=== PATIENT | female | born 1950 | race Caucasian/White ===

== ENCOUNTER 2016-05-07 15:03 | Emergency (ER) | payer MEDICAID ==
[~2016-05-07] VITALS: Ht 162.6 cm; Wt 68.5 kg
[2016-05-07 19:31] LABS: Urine Bilirubin Negative (Negative); Urine Blood Negative /uL (Negative); Urine Color Yellow (Yellow); Urine Glucose Normal (Normal); Urine Hyaline Cast FEW /lpf (0 - 2); Urine Ketone Negative (Negative); Urine Mucus FEW (None Seen); Urine Nitrite Negative (Negative); Urine RBC <1 /hpf (0 - 4); Urine Squamous Epithelial Cell FEW /hpf (<5); Urine Urobilinogen Normal (Negative); Urine pH 5.5 (5.0-8.0)
[2016-05-07 21:59] VITALS: BP 139/51
[2016-05-07] MEDS ORDERED: AZITHROMYCIN 250 MG TAB PO ONE (22:00)
[2016-05-07 22:17] LABS: BUN/Creatinine Ratio 20.3; Bilirubin, Total 0.2 mg/dL (0.2-1.0); Calcium 9.1 mg/dL (8.5-10.1); Potassium 4.4 mmol/L (3.5-5.1); Total Protein 8.2 g/dL (6.4-8.2)
[2016-05-07 22:24] LABS: Basophils # (auto) 0 uL; DEFINITIVE VIEW TRANSMISSION; Eosinophils # (auto) 0.1 uL; Eosinophils % (auto) 0.6 % (0.0-7.0); Hematocrit 23.2 % (36.0-46.0); Lymphocytes # (auto) 0.8 uL; Lymphocytes % (auto) 6.3 % (10.0-50.0); Mean Corpuscular Hemoglobin 21.8 pg (28.0-32.0); Mean Corpuscular Hgb Conc. 29.2 g/dL (32.0-36.0); Mean Corpuscular Volume 74.7 fL (80.0-100.0); Mean Platelet Volume 9.5 fL (7.4-10.4); Monocytes # (auto) 0.8 uL; Monocytes % (auto) 6.2 % (0.0-12.0); Neutrophils # (auto) 11.7 uL; Neutrophils % (auto) 86.9 % (37.0-80.0); Platelet Count (auto) 669 10^3/uL (140-450); SUSPECT VIEW TRANSMISSION; White Blood Cell 13.4 10^3/uL (4.4-10.8)
[2016-05-07 22:30] LABS: Hemoglobin 6.8 g/dL (12.2-16.2); Red Cell Distribution Width 25.8 % (11.6-16.0)
[2016-05-07 22:49] LABS: Anisocytosis Moderate; Hypochromia Moderate; Platelet Estimate Increased
[2016-05-07 22:50] LABS: Tear Drop Cells FEW
== END 2016-05-07 23:03 | disposition home or self-care (01) ==
LOC: ER 15:25
DX: J20.9 Acute bronchitis, unspecified (principal); D64.9 Anemia, unspecified; R41.82 Altered mental status, unspecified; F17.210 Nicotine dependence, cigarettes, uncomplicated; E78.5 Hyperlipidemia, unspecified; E07.9 Disorder of thyroid, unspecified; F41.9 Anxiety disorder, unspecified; M54.9 Dorsalgia, unspecified; G89.29 Other chronic pain; Z88.0 Allergy status to penicillin; Z88.6 Allergy status to analgesic agent; Z98.51 Tubal ligation status; W06.XXXA Fall from bed, initial encounter; Y93.89 Activity, other specified; Y99.8 Other external cause status; Y92.89 Other specified places as the place of occurrence of the external cause
CPT/HCPCS: 36415; 70450; 71010; 72100; 80053; 81001; 85025; 85049; 93005

== ENCOUNTER 2016-05-24 18:23 | Emergency (ER) | payer MEDICAID ==
[~2016-05-24] VITALS: Ht 162.6 cm; Wt 57.2 kg
[2016-05-24 19:23] VITALS: BP 126/58
[2016-05-24 20:01] LABS: DEFINITIVE VIEW TRANSMISSION; Hematocrit 20.8 % (36.0-46.0); Mean Corpuscular Hgb Conc. 28.8 g/dL (32.0-36.0); Mean Corpuscular Volume 69.6 fL (80.0-100.0); Mean Platelet Volume 8.3 fL (7.4-10.4); Platelet Count (auto) 453 10^3/uL (140-450); SUSPECT VIEW TRANSMISSION
[2016-05-24 20:12] LABS: INR 1.11 (0.9-1.15); Partial Thromboplastin Time 34.8 sec (22.64-33.71); Prothrombin Time 11.4 sec (9.37-12.3)
[2016-05-24 20:37] LABS: Metamyelocytes % 0; Myelocytes % 0; Promyelocytes % 0; Reactive Lymphocytes 0
[2016-05-24 20:43] LABS: Potassium 4.2 mmol/L (3.5-5.1)
[2016-05-24 20:50] LABS: Albumin 2.4 g/dL (3.4-5.0); BUN/Creatinine Ratio 12.2; Calcium 8.8 mg/dL (8.5-10.1)
[2016-05-24 20:52] LABS: Bilirubin, Total 0.4 mg/dL (0.2-1.0); Total Protein 7.6 g/dL (6.4-8.2)
[2016-05-24 21:07] LABS: B-Type Natriuretic Peptide 182.77 pg/mL (0-100); Temperature: 22.7 C (20.0-25.0)
[2016-05-24 21:53] LABS: Anisocytosis Marked; Hypochromia Marked; Microcytosis Marked; Ovalocytes FEW; Platelet Estimate Increased; Stomatocytes Few
== END 2016-05-25 01:06 | disposition left against medical advice (07) ==
LOC: ER 18:29
DX: M54.9 Dorsalgia, unspecified (principal); R63.0 Anorexia; R53.1 Weakness; Z53.21 Procedure and treatment not carried out due to patient leaving prior to being seen by health care provider
CPT/HCPCS: 36415; 71020; 80053; 83735; 83880; 84484; 85007; 85027; 85610; 85730; 93005

== ENCOUNTER 2016-05-25 09:14 | Inpatient (IN) | payer MEDICAID ==
[~2016-05-25] VITALS: Ht 162.6 cm; Wt 71.0 kg
[2016-05-25] VITALS (12 sets, daily range): BP systolic 126–154; BP diastolic 45–92
[2016-05-25] MEDS ORDERED: SODIUM CHLORIDE 0.9% 1,000 ML IV ONE ×2 (10:07→11:36)
[2016-05-25 10:53] LABS: Basophils # (auto) 0 uL; DEFINITIVE VIEW TRANSMISSION; Eosinophils # (auto) 0 uL; Eosinophils % (auto) 0.2 % (0.0-7.0); Hematocrit 20.6 % (36.0-46.0); Lymphocytes # (auto) 0.5 uL; Mean Corpuscular Hemoglobin 19.8 pg (28.0-32.0); Mean Corpuscular Hgb Conc. 28.5 g/dL (32.0-36.0); Mean Corpuscular Volume 69.5 fL (80.0-100.0); Mean Platelet Volume 8.4 fL (7.4-10.4); Monocytes % (auto) 5.4 % (0.0-12.0); Neutrophils # (auto) 16.2 uL; Neutrophils % (auto) 91.4 % (37.0-80.0); Platelet Count (auto) 442 10^3/uL (140-450); White Blood Cell 17.7 10^3/uL (4.4-10.8)
[2016-05-25 10:55] LABS: Red Cell Distribution Width 24.8 % (11.6-16.0)
[2016-05-25 10:56] LABS: Hemoglobin 5.9 g/dL (12.2-16.2)
[2016-05-25 10:59] LABS: INR 1.1 (0.9-1.15); Partial Thromboplastin Time 33.9 sec (22.64-33.71); Prothrombin Time 11.3 sec (9.37-12.3)
[2016-05-25 11:14] LABS: Albumin 2.3 g/dL (3.4-5.0); BUN/Creatinine Ratio 17.4; Bilirubin, Total 0.3 mg/dL (0.2-1.0); Calcium 8.5 mg/dL (8.5-10.1); Potassium 4.2 mmol/L (3.5-5.1); Total Protein 7.5 g/dL (6.4-8.2)
[2016-05-25 14:14] LABS: Anisocytosis Moderate; Hypochromia Marked; Microcytosis Marked; Ovalocytes MODERATE; Platelet Estimate Adequate
[2016-05-25 14:15] LABS: Large Platelets FEW
[2016-05-25] MEDS ORDERED: ALBUTEROL SULF 2.5 MG/0.5ML(0.5%) NEB SOLN NEB ONE (14:30)
[2016-05-25] MEDS ORDERED: IPRATROPIUM BROM 0.5 MG/2.5ML INH SOL NEB ONE (14:30)
[2016-05-25] MEDS ORDERED: cefTRIAXone 1GM/50ML D5W 50 ML IV ONE (15:15)
[2016-05-25] MEDS ORDERED: VANCOMYCIN PER PHARMACY 0 MG IV SCH (16:30)
[2016-05-25] MEDS ORDERED: LEVOFLOXACIN 500MG 100 ML IV ONE (16:30)
[2016-05-25] MEDS ORDERED: MORPHINE SULF INJ 2 MG/ML SYRINGE 1ML IV PRN ×2 (16:45)
[2016-05-25] MEDS ORDERED: DOCUSATE SOD 100 MG CAP PO PRN (16:45)
[2016-05-25] MEDS ORDERED: ACETAMINOPHEN 325 MG TAB PO PRN (16:45)
[2016-05-25] MEDS ORDERED: HYDROcodone-ACET 5/325MG TAB PO PRN (16:45)
[2016-05-25] MEDS ORDERED: TEMAZEPAM 15 MG CAP PO PRN (16:45)
[2016-05-25] MEDS ORDERED: NITROGLYCERIN 0.4 MG SL TAB SL PRN (16:45)
[2016-05-25] MEDS ORDERED: ONDANSETRON HCL 4 MG/2 ML VIAL IV PRN (16:45)
[2016-05-25] MEDS: VANCOMYCIN 750 MG in D5W 5% 250 ML IV SCH (18:00)
[2016-05-25] MEDS: BOOST PLUS 8 ounce PO SCH ×2 (18:00→22:00)
[2016-05-25] MEDS: ALBUTEROL SULF 2.5 MG/0.5ML(0.5%) NEB SOLN NEB SCH (20:16)
[2016-05-25] MEDS: IPRATROPIUM BROM 0.5 MG/2.5ML INH SOL NEB SCH (20:16)
[2016-05-25] MEDS: SODIUM CHLOR 0.9% PF (SALINE LOCK) 10ML VIAL IV SCH (22:12)
[2016-05-25] MEDS: FAMOTIDINE 20 MG TAB PO SCH (22:12)
[2016-05-26] VITALS (11 sets, daily range): BP systolic 109–130; BP diastolic 54–73
[2016-05-26] MEDS: ALBUTEROL SULF 2.5 MG/0.5ML(0.5%) NEB SOLN NEB SCH ×4 (00:18→19:06)
[2016-05-26] MEDS: IPRATROPIUM BROM 0.5 MG/2.5ML INH SOL NEB SCH ×4 (00:18→19:07)
[2016-05-26 01:11] LABS: Urine RBC None Seen /hpf (0 - 4)
[2016-05-26 01:23] LABS: Urine Bilirubin Negative (Negative); Urine Blood Negative /uL (Negative); Urine Color Yellow (Yellow); Urine Glucose Normal (Normal); Urine Ketone Negative (Negative); Urine Nitrite Negative (Negative); Urine Squamous Epithelial Cell FEW /hpf (<5); Urine Urobilinogen Normal (Negative)
[2016-05-26] MEDS: VANCOMYCIN 750 MG in D5W 5% 250 ML IV SCH ×2 (05:37→17:52)
[2016-05-26] MEDS: SODIUM CHLOR 0.9% PF (SALINE LOCK) 10ML VIAL IV SCH ×3 (05:37→21:38)
[2016-05-26] MEDS: BOOST PLUS 8 ounce PO SCH ×3 (05:37→21:35)
[2016-05-26 06:29] LABS: Basophils # (auto) 0 uL; DEFINITIVE VIEW TRANSMISSION; Eosinophils # (auto) 0 uL; Eosinophils % (auto) 0.1 % (0.0-7.0); Hematocrit 29.2 % (36.0-46.0); Hemoglobin 8.9 g/dL (12.2-16.2); Lymphocytes # (auto) 0.3 uL; Lymphocytes % (auto) 2.6 % (10.0-50.0); Mean Corpuscular Hemoglobin 23.8 pg (28.0-32.0); Mean Corpuscular Hgb Conc. 30.4 g/dL (32.0-36.0); Mean Corpuscular Volume 78.2 fL (80.0-100.0); Mean Platelet Volume 9.4 fL (7.4-10.4); Monocytes # (auto) 0.6 uL; Monocytes % (auto) 4.8 % (0.0-12.0); Neutrophils # (auto) 11.4 uL; Neutrophils % (auto) 92.5 % (37.0-80.0); Platelet Count (auto) 352 10^3/uL (140-450); White Blood Cell 12.4 10^3/uL (4.4-10.8)
[2016-05-26 07:07] LABS: Red Cell Distribution Width 24.9 % (11.6-16.0)
[2016-05-26 07:33] LABS: Albumin 1.9 g/dL (3.4-5.0); BUN/Creatinine Ratio 11.9; Bilirubin, Total 0.5 mg/dL (0.2-1.0); Potassium 4.1 mmol/L (3.5-5.1); Total Protein 6.3 g/dL (6.4-8.2)
[2016-05-26 09:12] LABS: Platelet Estimate Adequate
[2016-05-26 09:13] LABS: Anisocytosis Moderate; Hypochromia Moderate
[2016-05-26 09:14] LABS: Schistocytes FEW
[2016-05-26] MEDS: FAMOTIDINE 20 MG TAB PO SCH ×2 (09:56→21:38)
[2016-05-26] MEDS: MULTIPLE VITAMIN TAB PO SCH (09:56)
[2016-05-26] MEDS ORDERED: LEVOFLOXACIN 500MG 100 ML IV SCH (10:00)
[2016-05-26] MEDS: ALPRAZolam 0.25 MG TAB PO PRN (14:22)
[2016-05-27] MEDS: IPRATROPIUM BROM 0.5 MG/2.5ML INH SOL NEB SCH ×3 (00:55→11:47)
[2016-05-27] MEDS: ALBUTEROL SULF 2.5 MG/0.5ML(0.5%) NEB SOLN NEB SCH ×3 (00:55→11:47)
[2016-05-27 05:16] VITALS: BP 144/78
[2016-05-27] MEDS: ALPRAZolam 0.25 MG TAB PO PRN (05:20)
[2016-05-27] MEDS: BOOST PLUS 8 ounce PO SCH ×2 (06:00→12:47)
[2016-05-27] MEDS: SODIUM CHLOR 0.9% PF (SALINE LOCK) 10ML VIAL IV SCH (06:06)
[2016-05-27 06:38] LABS: Basophils # (auto) 0 uL; DEFINITIVE VIEW TRANSMISSION; Eosinophils # (auto) 0.1 uL; Eosinophils % (auto) 1.1 % (0.0-7.0); Hematocrit 29.8 % (36.0-46.0); Lymphocytes # (auto) 0.4 uL; Lymphocytes % (auto) 3.9 % (10.0-50.0); Mean Corpuscular Hemoglobin 23.7 pg (28.0-32.0); Mean Corpuscular Hgb Conc. 30.4 g/dL (32.0-36.0); Mean Corpuscular Volume 77.9 fL (80.0-100.0); Mean Platelet Volume 9.6 fL (7.4-10.4); Monocytes # (auto) 0.5 uL; Monocytes % (auto) 4.8 % (0.0-12.0); Neutrophils # (auto) 9.4 uL; Neutrophils % (auto) 90.2 % (37.0-80.0); Platelet Count (auto) 368 10^3/uL (140-450); SUSPECT VIEW TRANSMISSION; White Blood Cell 10.4 10^3/uL (4.4-10.8)
[2016-05-27 07:52] LABS: Platelet Estimate Adequate
[2016-05-27 07:53] LABS: Anisocytosis Moderate; Hypochromia Moderate; Schistocytes FEW
[2016-05-27 08:00] VITALS: BP 132/61
[2016-05-27 08:34] LABS: BUN/Creatinine Ratio 11.3; Potassium 3.7 mmol/L (3.5-5.1)
[2016-05-27 08:37] LABS: Bilirubin, Total 0.4 mg/dL (0.2-1.0); Total Protein 6.4 g/dL (6.4-8.2)
[2016-05-27 09:00] VITALS: BP 132/61
[2016-05-27] MEDS: FAMOTIDINE 20 MG TAB PO SCH (09:39)
[2016-05-27] MEDS: MULTIPLE VITAMIN TAB PO SCH (09:39)
[2016-05-27] MEDS ORDERED: VANCOMYCIN 750 MG in D5W 5% 250 ML IV SCH (10:00)
[2016-05-27] MEDS ORDERED: LEVOFLOXACIN 500MG 100 ML IV SCH (11:00)
[2016-05-27 13:00] VITALS: BP 138/56
[2016-05-27 13:45] VITALS: BP 132/61
== END 2016-05-27 16:20 | disposition home or self-care (01) | DRG 139 ==
LOC: ER 09:17 → TELE 09:18 → TELE-WESTW 17:59
PROVIDERS: ADMIT Internal Medicine; ATTEND Internal Medicine
PROC: 30233N1 Transfusion of Nonautologous Red Blood Cells into Peripheral Vein, Percutaneous Approach (ICD-10-PCS; principal; 2016-05-25)
PROC: 30233N1 Transfusion of Nonautologous Red Blood Cells into Peripheral Vein, Percutaneous Approach (ICD-10-PCS; 2016-05-26)
DX: J18.9 Pneumonia, unspecified organism (principal); E43 Unspecified severe protein-calorie malnutrition; J45.901 Unspecified asthma with (acute) exacerbation; E61.1 Iron deficiency; N28.1 Cyst of kidney, acquired; N18.3 Chronic kidney disease, stage 3 (moderate); F17.210 Nicotine dependence, cigarettes, uncomplicated; D63.8 Anemia in other chronic diseases classified elsewhere; G89.29 Other chronic pain; E78.5 Hyperlipidemia, unspecified; F41.9 Anxiety disorder, unspecified; Z98.51 Tubal ligation status; Z98.890 Other specified postprocedural states; Z88.5 Allergy status to narcotic agent; Z88.0 Allergy status to penicillin; Z83.3 Family history of diabetes mellitus; Z68.26 Body mass index [BMI] 26.0-26.9, adult
CPT/HCPCS: 36415; 36430; 71020; 71250; 74176; 76775; 80053; 80202; 81001; 82270; 83540; 83605; 83735; 84443; 84484; 85025; 85379; 85610; 85730; 86850; 86900; 86901; 86920; 87040; 87400; 93005; 93970; 94640; 96361; 96365; 96368; J0696; J1956; J7060

== ENCOUNTER 2016-06-20 18:04 | Emergency (ER) | payer MEDICAID ==
[~2016-06-20] VITALS: Ht 165.1 cm; Wt 59.0 kg
[2016-06-20] MEDS ORDERED: ETOMIDATE (2MG/ML) 20ML VIAL IV ONE ×2 (20:15→21:00)
[2016-06-20 21:34] VITALS: BP 142/67
== END 2016-06-20 21:34 | disposition home or self-care (01) ==
LOC: ER 18:07
DX: S43.004A Unspecified dislocation of right shoulder joint, initial encounter (principal); W01.0XXA Fall on same level from slipping, tripping and stumbling without subsequent striking against object, initial encounter; Y93.89 Activity, other specified; Y99.9 Unspecified external cause status; Y92.89 Other specified places as the place of occurrence of the external cause; Z88.0 Allergy status to penicillin; Z88.6 Allergy status to analgesic agent; E78.5 Hyperlipidemia, unspecified; F17.210 Nicotine dependence, cigarettes, uncomplicated; M54.9 Dorsalgia, unspecified; G89.29 Other chronic pain; R51 Headache
CPT/HCPCS: 23650; 70450; 73020; 73030; 94761; 99285; J7030